=== PATIENT | male | born 1950 | race African-American/Black ===

== ENCOUNTER → 2018-05-02 | Outpatient (CLI) | payer OTHER ==
[~2018-05-02] MED LIST: GADOBUTROL 10 MMOL/10 ML VIAL IV ONE
--- NOTE | 2018-05-02 16:35 | KCIC ---
MRI right shoulder without contrast dated 05/02/2018. No comparison available. CLINICAL INDICATION: Palpable mass left shoulder. History of prior trauma 4-5 years ago. Pain. TECHNIQUE: Routine multiplanar multisequence MR imaging performed. Fat-saturated T1-weighted imaging acquired following the intravenous administration of 9 cc Gadavist. FINDINGS: MR compatible marker is located over the upper margin of the humeral head posteriorly.There is no evidence of mass or abnormal enhancement deep to the marker. The marker is located near the distal clavicle which is deformed, consistent with old healed fracture. There is also an os acromiale he with hypertrophic change at the pseudoarthrosis. Mild undersurface spurring of the acromium. Trace amount subacromial/subdeltoid bursal fluid. There is intermediate T2 signal throughout the supraspinatus and infraspinatus portions of the rotator cuff. There is a small linear partial tear of the anterior supraspinatus footplate, best seen on the coronal sequences. This measures about 7 mm in size and appears to extend full-thickness. No cuff retraction. Subscapularis is intact. Wedge-shaped defect at the superior lateral humeral head compatible with old Hill-Sachs impaction fracture. There is mild subchondral cystic changes of the humeral head. Marrow signal is otherwise homogeneous. Suprascapular and spinoglenoid notches are clear. No significant muscle edema or muscle atrophy. There is mild hypertrophic change at the glenohumeral joint. Blunted morphology of the anterior inferior labrum. There is also mild blunting of the posterior superior labrum. No discrete labral tear or para labral cyst. No glenohumeral joint effusion or loose body. Long head biceps tendon and biceps anchor are grossly intact. Mild increased signal within the tendon substance. Extra articular biceps tendon courses within the bicipital groove. IMPRESSION: 1. No evidence of soft tissue mass or abnormal enhancement deep to the area of palpable abnormality. 2. Deformity of the distal clavicle consistent with old healed fracture. 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 There is undersurface spurring of the distal clavicle with trace subacromial/subdeltoid bursal effusion. 3. Rotator cuff tendinopathy with small full-thickness tear versus high-grade partial tear of the supraspinatus footplate. There is no significant cuff retraction. 4. Hill-Sachs impaction fracture of the superior lateral humeral head, likely remote. There is also evidence of prior Bankart tearing of the anterior inferior labrum. 5. Possible degenerative type I SLAP tear of the posterior superior labrum. 6. Mild biceps tendinosis Electronically signed by: Juan Jung MD (05/02/2018 4:32 PM) [facility] [place]
== END | disposition home or self-care (01) ==
LOC: KCIC MRI 14:35
PROVIDERS: ATTEND Orthopaedic Surgery
DX: S42.291A Other displaced fracture of upper end of right humerus, initial encounter for closed fracture (principal); M75.21 Bicipital tendinitis, right shoulder; X58.XXXA Exposure to other specified factors, initial encounter; Y93.89 Activity, other specified; Y92.89 Other specified places as the place of occurrence of the external cause; Y99.8 Other external cause status
CPT/HCPCS: 73223; 82565; A9585